=== PATIENT | male | born 1965 | race Caucasian/White ===

== ENCOUNTER 2021-07-21 09:01 | Emergency (ER) | payer OTHER ==
[~2021-07-21] VITALS: Ht 190.5 cm; Wt 113.4 kg
[2021-07-21] MEDS ORDERED: CARB100ER (09:23)
[2021-07-21] MEDS ORDERED: LORA10ER PO (09:23)
[2021-07-21] MEDS ORDERED: Ranitidine HCl150 M1 PO (09:24)
[2021-07-21] MEDS ORDERED: ZESTRIL40 M1 PO (09:24)
[2021-07-21] MEDS ORDERED: DIVA250EC PO (09:25)
[2021-07-21] MEDS ORDERED: LOVA40 PO (09:25)
[2021-07-21] MEDS ORDERED: SERT25 PO (09:25)
[2021-07-21 11:24] LABS: SARS-Cov-2 (COVID-19) PCR, MMC NEGATIVE (NEGATIVE)
== END 2021-07-21 11:55 | disposition home or self-care (01) ==
LOC: ER 09:01
PROVIDERS: Student in an Organized Health Care Education/Training Program
DX: J06.9 Acute upper respiratory infection, unspecified (principal); J45.909 Unspecified asthma, uncomplicated; Z20.822 Contact with and (suspected) exposure to COVID-19; Z79.899 Other long term (current) drug therapy; Z87.891 Personal history of nicotine dependence
CPT/HCPCS: 71045; 93005; 93010; 94640; 96360; 96361; 99284-25; J7030; U0004